=== PATIENT | female | born 1965 ===

== ENCOUNTER 2016-09-11 09:31 | Outpatient (CLI) | payer OTHER ==
--- NOTE | 2016-09-12 08:25 | Ultrasound Report ---
ABDOMINAL ULTRASOUND: 09/11/16 09:31:00 CLINICAL: Evaluate size of liver and spleen. FINDINGS: High-resolution ultrasound demonstrated a normal size liver with normal contour and overall echogenicity. The right lobe measures approximately 15 cm in length. A benign left hepatic cyst measures 1.1 x 0.7 x 1.0 cm.. No liver mass. Normal hepatic vasculature and inferior vena cava. Gallbladder sludge but no stones. The gall bladder wall measures 1.4 mm thick. Normal bile ducts. The common bile duct measures 3.0 mm diameter. The pancreas is well imaged a normal Normal abdominal aorta. A normal spleen measures 9.1cm. Normal kidneys with normal renal echogenicity and normal non-dilated renal collecting systems and ureters. The right kidney measures 10.3 x 4.2 x 4.8cm. The left kidney measures 10.1 x 7.2 x 4.7cm. No renal mass or calculus. No ascites or mass. IMPRESSION: 1. Normal size liver and spleen. 2. Gallbladder sludge but no stones. 3. A 1.1 cm benign left hepatic cyst.
== END 2016-09-11 09:32 | disposition home or self-care (01) ==
LOC: SPVWC 09:31
PROVIDERS: ATTEND Internal Medicine Hematology & Oncology
DX: D72.820 Lymphocytosis (symptomatic) (principal); K76.89 Other specified diseases of liver; K82.8 Other specified diseases of gallbladder; R74.8 Abnormal levels of other serum enzymes; D64.9 Anemia, unspecified; E66.3 Overweight; R53.81 Other malaise
CPT/HCPCS: 76700